=== PATIENT | female | born 1975 | race Caucasian/White ===

== ENCOUNTER 2016-06-16 19:40 | Emergency (ER) | payer BC, OTHER ==
[~2016-06-16] VITALS: Ht 167.6 cm; Wt 56.2 kg
[~2016-06-16 19:40] MED LIST: CIPRO500 MG PO; CITRATE OF MAG296 ML PO; FLAGYL500 MG PO; FLOMAX0.4 MG PO; IBUPROFEN 600600 M1 PO; KEFLEX250 MG PO; NOHOMEMEDICATIONS; NORCO 5-325 TA1 EACH PO; TIZANIDINE HCL4 MG PO; VICODIN 5-5001 EACH PO
[2016-06-16 19:55] LABS: URINE BILIRUBIN NEGATIVE (Negative); URINE BLOOD NEGATIVE (Negative); URINE COLOR YELLOW; URINE GLUCOSE-RANDOM* NEGATIVE (Negative); URINE KETONES NEGATIVE (Negative); URINE NITRITE POSITIVE (Negative); URINE PROTEIN (DIPSTICK) NEGATIVE (Negative); URINE UROBILINOGEN 0.2 E.U./dl (0.2-1.0)
[2016-06-16 20:04] LABS: BACTERIA >30 Many /HPF (None Seen); URINE RBC None Seen /HPF (0-2); URINE WBC 6-15 Few /HPF (0-5)
[2016-06-16 20:05] LABS: CASTS None Seen /LPF (None Seen); CRYSTALS None Seen /LPF (None Seen); SQUAMOUS 4-10 Moderate /LPF (0-3)
[2016-06-16 21:04] LABS: ABSOLUTE NEUTROPHILS 4.6 thou/uL (1.4-8.2); BASOPHILS 1.1 % (0.0-2.0); EOSINOPHILS 0.9 % (0.0-3.0); HEMATOCRIT 40.1 % (37.0-47.0); HEMOGLOBIN 13.5 gm/dL (12.0-15.0); LYMPHOCYTES 32.6 % (24.0-44.0); MCH 30.7 pg (26.0-34.0); MCHC 33.7 g/dL (28.0-37.0); MCV 91.1 fL (80.0-100.0); MONOCYTES 7.9 % (1.0-8.0); PLATELET COUNT 237 thou/uL (150-400); POLYS 57.5 % (36.0-66.0); RDW 13.2 % (10.5-14.5)
[2016-06-16 21:10] LABS: MANUAL DIFF NO
[2016-06-16 21:11] LABS: CALCIUM 8.4 mg/dL (8.5-10.1); CREATININE 0.8 mg/dL (0.6-1.0); POTASSIUM 4.3 mmol/L (3.5-5.1)
[2016-06-16 21:16] LABS: ALBUMIN 3.8 g/dL (3.4-5.0); TOTAL BILIRUBIN 0.4 mg/dL (<0.1-1.0); TOTAL PROTEIN 6.7 g/dL (6.4-8.2)
[2016-06-16] MEDS ORDERED: PHENAZOPYRIDIN200 M2 PO (21:46)
[2016-06-16] MEDS ORDERED: CIPRO500 MG PO (21:46)
[2016-06-16 21:58] VITALS: BP 149/94
== END 2016-06-16 22:02 | disposition home or self-care (01) ==
LOC: ER 19:40
PROVIDERS: Physician Assistant
DX: N12 Tubulo-interstitial nephritis, not specified as acute or chronic (principal); F17.210 Nicotine dependence, cigarettes, uncomplicated; Z87.442 Personal history of urinary calculi; Z88.1 Allergy status to other antibiotic agents; Z88.2 Allergy status to sulfonamides

== ENCOUNTER 2016-06-28 11:02 | Emergency (ER) | payer BC, OTHER ==
[~2016-06-28] VITALS: Ht 167.6 cm; Wt 56.2 kg
[~2016-06-28 11:02] MED LIST changes: +PHENAZOPYRIDIN200 M2 PO
[2016-06-28] MEDS ORDERED: SENOKOT-S1 TA1 PO (11:57)
[2016-06-28] MEDS ORDERED: NORCO 5-325 TA1 EACH PO (12:14)
[2016-06-28 12:21] VITALS: BP 155/95
== END 2016-06-28 12:22 | disposition home or self-care (01) ==
LOC: ER 11:02
DX: S60.221A Contusion of right hand, initial encounter (principal); Z87.442 Personal history of urinary calculi; Z88.1 Allergy status to other antibiotic agents; Z88.2 Allergy status to sulfonamides; F17.210 Nicotine dependence, cigarettes, uncomplicated; X58.XXXA Exposure to other specified factors, initial encounter; Y93.89 Activity, other specified; Y92.89 Other specified places as the place of occurrence of the external cause; Y99.8 Other external cause status

== ENCOUNTER 2016-07-28 14:18 | Emergency (ER) | payer BC, OTHER ==
[~2016-07-28] VITALS: Ht 170.2 cm; Wt 54.4 kg
[~2016-07-28 14:18] MED LIST changes: +SENOKOT-S1 TA1 PO
[2016-07-28 14:23] VITALS: BP 154/96
[2016-07-28] MEDS ORDERED: TRAZODONE HCL50 MG PO (14:25)
[2016-07-28] MEDS ORDERED: NAPROSYN500 MG PO (15:03)
== END 2016-07-28 15:29 | disposition home or self-care (01) ==
LOC: ER 14:18
DX: S63.610A Unspecified sprain of right index finger, initial encounter (principal); F17.210 Nicotine dependence, cigarettes, uncomplicated; Z88.1 Allergy status to other antibiotic agents; Z88.2 Allergy status to sulfonamides; W22.8XXA Striking against or struck by other objects, initial encounter; Y93.89 Activity, other specified; Y92.89 Other specified places as the place of occurrence of the external cause; Y99.9 Unspecified external cause status

== ENCOUNTER 2016-12-09 16:22 | Emergency (ER) | payer BC, OTHER ==
[~2016-12-09] VITALS: Ht 170.2 cm; Wt 53.5 kg
--- NOTE | ~2016-12-09 | EKG ---
[address] [place] [address] ELECTROCARDIOGRAM REPORT Name: FAREED CHAMPION [id number] Admission: 12/09/16 Attend Phys: Discharge: 12/09/16 Date of : 73 Report #: [id number] THIS REPORT FOR: //name// [facility] ED Test Date: 2016-12-09 Test Time: 16:33:37 Pat Name: FAREED CHAMPION Department: Room: Gender: F Senior Staff Consultant: CHRISTIANO : 1975 Requested By: Geremias Bernard Order Number: [id number] MD: Ezio George Measurements Intervals [place] Rate: 82 P: 81 AK: 127 QRS: 66 QRSD: 97 T: 44 QT: 439 QTc: 513 Interpretive Statements Sinus rhythm Right atrial enlargement Left ventricular hypertrophy No previous ECG available for comparison Electronically Signed On 12-09-2016 21:26:30 CDT by Ezio George [email or web address] <ELECTRONICALLY SIGNED> By: Ezio George MD 12/09/16 [id number] 1633 Ezio George MD /COURTNEY
[~2016-12-09 16:22] MED LIST changes: +CELEXA20 MG PO; +HYDROCODONE-AP1 EAC6 PO; +NAPROSYN500 MG PO; +PHENERGAN 25 MG25 M1 PO; +TRAZODONE HCL50 MG PO
[2016-12-09] MEDS ORDERED: DOXYCYCLINE 10100 MG PO (16:28)
[2016-12-09] MEDS ORDERED: FLAGYL500 MG PO (16:28)
[2016-12-09 16:38] LABS: HEMATOCRIT 42.3 % (37.0-47.0); HEMOGLOBIN 14.6 gm/dL (12.0-15.0); MCH 31.4 pg (26.0-34.0); MCHC 34.5 g/dL (28.0-37.0); MCV 90.9 fL (80.0-100.0); RBC 4.65 mil/uL (4.20-5.00); WBC 7.9 thou/uL (4.0-11.0)
[2016-12-09 16:51] LABS: CALCIUM 9.6 mg/dL (8.5-10.1); CREATININE 0.9 mg/dL (0.6-1.0); POTASSIUM 3.1 mmol/L (3.5-5.1)
[2016-12-09] MEDS ORDERED: HYDROXYZINE HCL25 M1 PO (17:05)
[2016-12-09 17:15] VITALS: BP 125/95
== END 2016-12-09 17:16 | disposition home or self-care (01) ==
LOC: ER 16:22
PROVIDERS: Physician Assistant
DX: F41.9 Anxiety disorder, unspecified (principal); R20.2 Paresthesia of skin; F17.210 Nicotine dependence, cigarettes, uncomplicated; Z87.442 Personal history of urinary calculi; Z88.1 Allergy status to other antibiotic agents; Z88.2 Allergy status to sulfonamides

== ENCOUNTER 2018-02-18 20:43 | Emergency (ER) | payer OTHER ==
[~2018-02-18] VITALS: Ht 170.2 cm; Wt 59.9 kg
[~2018-02-18 20:43] MED LIST changes: +BUSPIRONE HCL10 MG PO; +DOXYCYCLINE 10100 MG PO; +HYDROXYZINE HCL25 M1 PO; +LEXAPRO 10 MG T10 M2 PO; +VISTARIL 25 MG25 M1 PO
[2018-02-18 21:01] LABS: URINE BILIRUBIN NEGATIVE (Negative); URINE BLOOD 1+ (Negative); URINE CLARITY CLEAR; URINE COLOR YELLOW; URINE GLUCOSE-RANDOM* NEGATIVE (Negative); URINE KETONES NEGATIVE (Negative); URINE LEUKOCYTES-REFLEX NEGATIVE (Negative); URINE NITRITE-REFLEX NEGATIVE (Negative); URINE PROTEIN (DIPSTICK) NEGATIVE (Negative); URINE SPECIFIC GRAVITY >= 1.030 (1.005-1.035); URINE UROBILINOGEN 0.2 E.U./dl (0.2-1.0)
[2018-02-18 21:10] LABS: SQUAMOUS None Seen /LPF (0-3)
[2018-02-18 21:11] LABS: BACTERIA-REFLEX None Seen /HPF (None Seen); CASTS None Seen /LPF (None Seen); CRYSTALS None Seen /LPF (None Seen); MUCUS >6 Heavy strn/LPF (None Seen); URINE WBC-REFLEX None Seen /HPF (0-5)
[2018-02-18] MEDS ORDERED: CARISOPRODOL 3350 MG PO (21:46)
[2018-02-18] MEDS ORDERED: NORCO 5-325 TA1 EACH PO (21:46)
[2018-02-18 22:13] VITALS: BP 128/93
== END 2018-02-18 22:14 | disposition home or self-care (01) ==
LOC: ER 20:43
PROVIDERS: Emergency Medicine
DX: M54.5 Low back pain (principal)

== ENCOUNTER 2018-03-22 18:30 | Emergency (ER) | payer OTHER ==
[~2018-03-22] VITALS: Ht 170.2 cm; Wt 59.9 kg
[~2018-03-22 18:30] MED LIST changes: +CARISOPRODOL 3350 MG PO
[2018-03-22] MEDS ORDERED: AZITHROMYCIN 2250 MG PO (20:33)
[2018-03-22] MEDS ORDERED: PREDNISONE 20 M20 MG PO (20:33)
[2018-03-22] MEDS ORDERED: VENTOLIN HFA 1818 GM INH (20:33)
[2018-03-22 20:56] VITALS: BP 150/78
== END 2018-03-22 20:56 | disposition home or self-care (01) ==
LOC: ER 18:30
DX: J18.9 Pneumonia, unspecified organism (principal); F17.210 Nicotine dependence, cigarettes, uncomplicated; Z98.890 Other specified postprocedural states; Z88.1 Allergy status to other antibiotic agents; Z88.2 Allergy status to sulfonamides